=== PATIENT | female | born 1945 | race Caucasian/White ===

== ENCOUNTER → 2020-08-28 | Outpatient (CLI) | payer MEDICARE, OTHER ==
[~2020-08-28] MED LIST: BETAPACE 80MG80 MG PO; ELIQUIS 5MG PO; LOPRESSOR 225 MG/TAB PO; LUTEIN6 MG; SINGULAIR 110 MG/TAB PO; ZOCOR 20MG20 MG PO
== END ==
LOC: ZCOL.LAB 11:23
DX: Z01.812 Encounter for preprocedural laboratory examination (principal); Z20.822 Contact with and (suspected) exposure to COVID-19